=== PATIENT | male | born 1970 | race Hispanic/Latino ===

== ENCOUNTER 2018-03-27 08:08 | Emergency (ER) | payer SELFPAY ==
--- NOTE | 2018-03-27 08:40 | ER ---
Nurse's Notes [facility] Name: Martín Rowan Age: 47 yrs Sex: Male : 1970 Arrival Date: 03/27/2018 Time: 08:10 Bed 19 Private MD: None, None Diagnosis: Hordeolum internum right lower eyelid Presentation: 03/27 08:16 Presenting complaint: Patient states: my R eye started to have like a "stye" yesterday, hj i bought over the counter cream from a pharmacy yesterday and applied it, this morning, my R eye is swollen and its itchy and has burning sensation; denies fever, denies blurry vision;. Transition of care: patient was not received from another setting of care. Onset of symptoms was March 27, 2018. Risk Assessment: Do you want to hurt yourself or someone else? Patient reports no desire to harm self or others. Initial Sepsis Screen: Does the patient meet any 2 criteria? No. Patient's initial sepsis screen is negative. Does the patient have a suspected source of infection? Yes:. Care prior to arrival: None. 08:16 Method Of Arrival: Ambulatory 08:16 Acuity: ERIKA 4 hj Triage Assessment: 08:20 General: Appears in no apparent distress. uncomfortable, Behavior is calm, cooperative, hj appropriate for age. Pain: Complains of pain in right eye. Historical: - Allergies: 08:21 PENICILLINS; hj - Home Meds: 08:21 losartan 50 mg oral tab 1 tab once daily [Active]; hj - PMHx: 08:21 Hypertension; hj - PSHx: 08:21 None; hj - Immunization history:: Adult Immunizations up to date. - Social history:: Smoking status: Patient uses tobacco products, smokes one-half pack cigarettes per day, Patient uses alcohol, weekly. - Ebola Screening: : Patient negative for fever greater than or equal to 101.5 degrees Fahrenheit, and additional compatible Ebola Virus Disease symptoms Patient denies exposure to infectious person Patient denies travel to an Ebola-affected area in the 21 days before illness onset. Screenin:20 Abuse screen: Denies threats or abuse. Denies injuries from another. Nutritional hj screening: No deficits noted. Tuberculosis screening: No symptoms or risk factors identified. Fall Risk None identified. Vital Signs: 08:22 Weight 99.79 kg; Height 5 ft. 11 in. (180.34 cm); Pain 4/10; hj 08:26 BP 120 / 78; Pulse 73; Resp 18; Temp 98.7(O); Pulse Ox 96% on R/A; mh5 08:22 Body Mass Index 30.68 (99.79 kg, 180.34 cm) ED Course: 08:10 Patient arrived in ED. mr 08:10 None, None is Private Physician. mr 08:16 Phillip Saha, KARLA is Primary Nurse. hj 08:20 Triage completed. hj 08:20 Arm band placed on right wrist. hj 08:22 Patient has correct armband on for positive identification. Bed in low position. Call light in reach. Side rails up X 1. 08:33 José Antonio Kang PA is PHCP. jr8 08:33 Paresh Majano MD is Attending Physician. jr8 08:39 Washington Mustafa MD is Referral Physician. jr8 08:45 No provider procedures requiring assistance completed. Patient did not have IV access ss during this emergency room visit. Administered Medications: 08:40 Drug: Tobramycin Ointment (0.3 %) 1 application Route: Ophthalmic; Site: right eye; ss Outcome: 08:39 Discharge ordered by . jr8 08:45 Discharged to home ambulatory. ss 08:45 Condition: good 08:45 Discharge instructions given to patient, Instructed on discharge instructions, follow up and referral plans. medication usage, Demonstrated understanding of instructions, follow-up care, medications, Prescriptions given X 1. 08:47 Patient left the ED. ss Signatures: Liseth Ball Shelby, RN RN José Antonio Kang PA PA [facility] Phillip Saha RN RN hj Martinez, [facility]
--- NOTE | 2018-03-27 08:40 | EDPHYS ---
Physician Documentation [facility] Name: Martín Rowan Age: 47 yrs Sex: Male : 1970 Arrival Date: 03/27/2018 Time: 08:10 Bed 19 Private MD: None, None ED Physician Paresh Majano HPI: 03/27 08:36 This 47 yrs old Male presents to ER via Ambulatory with complaints of Eye jr8 Swelling. 08:36 The patient is experiencing pain, redness, tearing. Onset: The symptoms/episode jr8 began/occurred acutely, yesterday. Duration: the symptoms are continuous. Aggravated by pressure, rubbing, Alleviated by nothing. Associated signs and symptoms: Pertinent positives: None. Patient does not utilize any form of vision correction. Severity of symptoms: At their worst the symptoms were mild in the emergency department the symptoms are unchanged. The patient has not experienced similar symptoms in the past. The patient has not recently seen a physician. Historical: - Allergies: 08:21 PENICILLINS; hj - Home Meds: 08:21 losartan 50 mg oral tab 1 tab once daily [Active]; hj - PMHx: 08:21 Hypertension; hj - PSHx: 08:21 None; hj - Immunization history:: Adult Immunizations up to date. - Social history:: Smoking status: Patient uses tobacco products, smokes one-half pack cigarettes per day, Patient uses alcohol, weekly. - Ebola Screening: : Patient negative for fever greater than or equal to 101.5 degrees Fahrenheit, and additional compatible Ebola Virus Disease symptoms Patient denies exposure to infectious person Patient denies travel to an Ebola-affected area in the 21 days before illness onset. ROS: 08:36 ENT: Negative for injury, pain, and discharge, Neck: Negative for injury, pain, and jr8 swelling, Cardiovascular: Negative for chest pain, palpitations, and edema, Respiratory: Negative for shortness of breath, cough, wheezing, and pleuritic chest pain, Abdomen/GI: Negative for abdominal pain, nausea, vomiting, diarrhea, and constipation, Back: Negative for injury and pain, MS/Extremity: Negative for injury and deformity, Skin: Negative for injury, rash, and discoloration, Neuro: Negative for headache, weakness, numbness, tingling, and seizure. 08:36 Eyes: Positive for discharge, pain, redness, swelling, tearing, of the right eye. Exam: 08:36 Visual Acuity: Visual acuity is within normal limits. jr8 08:36 Head/Face: Normocephalic, atraumatic. ENT: Nares patent. No nasal discharge, no septal abnormalities noted. Tympanic membranes are normal and external auditory canals are clear. Oropharynx with no redness, swelling, or masses, exudates, or evidence of obstruction, uvula midline. Mucous membranes moist. Neck: Trachea midline, no thyromegaly or masses palpated, and no cervical lymphadenopathy. Supple, full range of motion without nuchal rigidity, or vertebral point tenderness. No Meningismus. Cardiovascular: Regular rate and rhythm with a normal S1 and S2. No gallops, murmurs, or rubs. Normal PMI, no JVD. No pulse deficits. Respiratory: Lungs have equal breath sounds bilaterally, clear to auscultation and percussion. No rales, rhonchi or wheezes noted. No increased work of breathing, no retractions or nasal flaring. Skin: Warm, dry with normal turgor. Normal color with no rashes, no lesions, and no evidence of cellulitis. MS/ Extremity: Pulses equal, no cyanosis. Neurovascular intact. Full, normal range of motion. Neuro: Awake and alert, GCS 15, oriented to person, place, time, and situation. Cranial nerves II-XII grossly intact. Motor strength 5/5 in all extremities. Sensory grossly intact. Cerebellar exam normal. Normal gait. 08:36 Eyes: Periorbital structures: swelling, that is mild, on the right lower eyelid, Pupils: equal, round, and reactive to light and accomodation, Extraocular movements: intact throughout, Conjunctiva: injected, in the right eye, tearing noted, in right eye, Corneas: are normal, Sclera: no appreciated abnormality, Anterior chamber: normal, Lids and lashes: erythema, on the right, stye, seen on the right lid. Vital Signs: 08:22 Weight 99.79 kg; Height 5 ft. 11 in. (180.34 cm); Pain 4/10; hj 08:26 BP 120 / 78; Pulse 73; Resp 18; Temp 98.7(O); Pulse Ox 96% on R/A; mh5 08:22 Body Mass Index 30.68 (99.79 kg, 180.34 cm) hj MDM: 08:33 Patient medically screened. jr8 08:41 Data reviewed: vital signs, nurses notes, and as a result, I will discharge patient. jr8 Data interpreted: Pulse oximetry: on room air is 96 %. Interpretation: normal. Counseling: I had a detailed discussion with the patient and/or guardian regarding: the historical points, exam findings, and any diagnostic results supporting the discharge/admit diagnosis, the need for outpatient follow up, an opthalmologist, to return to the emergency department if symptoms worsen or persist or if there are any questions or concerns that arise at home. Administered Medications: 08:40 Drug: Tobramycin Ointment (0.3 %) 1 application Route: Ophthalmic; Site: right eye; ss Disposition: 11:52 Co-signature as Attending Physician, Paresh Majano MD I agree with the assessment and kdr plan of care. Disposition: 03/27/18 08:39 Discharged to Home. Impression: Hordeolum internum right lower eyelid. - Condition is Stable. - Discharge Instructions: Stye. - Prescriptions for Gentamicin 0.3 % (3 mg/gram) Ophthalmic Ointment - apply 0.5 inch by OPHTHALMIC route 2-3 times daily for 7 days; 3.5 gram. - Medication Reconciliation Form, Thank You Letter, Antibiotic Education, Prescription Opioid Use form. - Follow up: Washington Mustafa MD; When: 5 - 6 days; Reason: Recheck today's complaints, Continuance of care, Re-evaluation by your physician. - Problem is new. - Symptoms have improved. Signatures: Paresh Majano MD MD [facility] Kiley Lazaro RN RN José Antonio Kang PA PA jr8 Phillip Saha RN RN Corrections: (The following items were deleted from the chart) 08:47 08:39 03/27/2018 08:39 Discharged to Home. Impression: Hordeolum internum right lower ss eyelid. Condition is Stable. Forms are Medication Reconciliation Form, Thank You Letter, Antibiotic Education, Prescription Opioid Use. Follow up: Washington Mustafa; When: 5 - 6 days; Reason: Recheck today's complaints, Continuance of care, Re-evaluation by your physician. Problem is new. Symptoms have improved. jr8
[2018-03-27] MEDS ORDERED: TOBRAMYCIN SULF 0.3% OPTH OINT ONE (08:41)
== END 2018-03-27 08:47 | disposition home or self-care (01) ==
LOC: ER 08:08
DX: H00.012 Hordeolum externum right lower eyelid (principal); F17.210 Nicotine dependence, cigarettes, uncomplicated; Z88.0 Allergy status to penicillin
CPT/HCPCS: 99283